=== PATIENT | female | born 1995 | race Caucasian/White ===

== ENCOUNTER 2023-04-27 06:25 | Inpatient (IN) ==
[2023-04-27] MEDS ORDERED: OXYTOCIN 30 UNITS/NSS 30 UNITS/500 ML BAG IV PRN ×3 (07:32→16:47)
[2023-04-27] MEDS ORDERED: LIDOCAINE 1% LOCAL 20 ML VIAL INFIL PRN (07:32)
[2023-04-27] MEDS ORDERED: VANCOMYCIN HCL 1,000 MG in SODIUM CHLORIDE 0.9% 250 ML IV ONE (08:00)
--- NOTE | 2023-04-27 08:24 | History & Physical Report ---
Date of Service April 27, 2023 Assessment & Plan (1) Seizure: (2) Anxiety: (3) Depression affecting in third trimester, antepartum: (4) GBS (group B Streptococcus carrier), +RV culture, currently : (5) Elective induction of labor planned: Plan: 28 yo at 40 wks, IOL at term VSS Afebrile FHR reasuring GBS positive Cervix favorable Plan to admit, labs, OXytocin per protocol, Vancomycin for GBS All questions were answered. (6) History of pre-eclampsia in prior , currently in third trimester: Admission and Anticipated Discharge Date Admission Date: April 27, 2023 History of Present Illness Primary Care Provider: NO PCP Patient is a 28-year-old -0-0-2 at 40 weeks of gestation who was scheduled for IOL at term. No signs of labor. No ctxs/ LOF/VB +FM Her has been complicated by, 1. Obesity during , 2. Depression during , 3. Seizure disorder in , on Keppra 4. Marijuana use in , 5. History of preeclampsia with prior , on aspirin, 6. GBS + Allergies Allergy/AdvReac Type Severity Reaction Status Date / Time amoxicillin Allergy Hives Verified 04/12/22 12:30 varicella virus vaccine live Allergy Hives Verified 04/27/23 07:27 Home Medications Medication Instructions Recorded Confirmed Type aspirin 81 mg capsule 81 mg PO DAILY 04/14/23 04/27/23 History docusate sodium 100 mg capsule 100 mg PO DAILY 04/14/23 04/27/23 History (Colace) levetiracetam 500 mg 1,000 mg PO DAILY 04/14/23 04/27/23 History tablet,extended release 24 hr (Keppra XR) ondansetron HCl 4 mg/5 mL oral 4 mg PO Q6H PRN Nausea 04/14/23 04/27/23 History solution [id number]-[id number]-FA 1 mg 1 tab PO DAILY 04/14/23 04/27/23 History tablet Patient History Medical History (Updated 04/27/23 @ 08:22 by Joycelyn Han MD) Anxiety Seizure Surgical History H/O elbow surgery Social History Smoking Status: Never smoker Tobacco Type: Cigarettes Cigarettes Per Day: pacl/ day; Second Hand Exposure: Yes; Hx Alcohol Use: No Hx Substance Use: Yes Last Used Substance: Just Prior to Arrival Last Used Substance Other:: 04/14/23 Preferred Language: Setswana Communication Ability: Effective Last Repairer Helper Required: No Beliefs That Will Affect Care: None marital status: Single Current Living Situation: Family and Significant Other Other Information That Helps Us Care for You: No Feels Safe at Home: Yes Safety Concerns: Feels Safe At This Time Assistive Devices: None OB History FT 's 10 and 6 years ago 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 History No h/o STD's, no h/o GC/ HSV Remote h/o Chlamydia, treated, PAM negative Review of Systems as per Subjective / HPI Physical Exam Constitutional: WD/WN, vitals as above Gastrointestinal (Abdomen): normal bowel sounds, soft, nontender, no hepatosplenomegaly Genitourinary: normal external appearance OB Exam Abdomen: + vertex Manual OB Exam: + cervical dilation 3 cm, + cervical effacement 30% and + station -2 OB Exam Monitor Tracing: + external uterine monitor used and + category I Results & Data Vital Signs (Past 12 Hours) Vital Signs Temp Pulse Resp BP 04/27/23 06:59 36.9 C 18 04/27/23 06:58 85 106/61 Code Status & VTE Plan VTE Prophylaxis Plan VTE Prophylaxis will be ordered: No
[2023-04-27] MEDS: LACTATED RINGER'S 1,000 ML IV PRN ×2 (08:25→14:43)
[2023-04-27 08:28] LABS: Mean Corpuscular Hemoglobin 29.1 pg (25.0-34.0); Mean Corpuscular Hgb Conc 33.3 g/dL (32.0-36.0); Mean Corpuscular Volume 87.3 fL (80.0-100.0); Mean Platelet Volume 9.4 fL (9.4-12.4); Platelet Count 194 K/uL (130-400); RDW Standard Deviation 44.6 fL (36.4-46.3); Red Blood Count 3.78 M/uL (4.20-5.40)
[2023-04-27 09:05] LABS: Amphetamines+Metham, Urine Neg (Neg); Barbiturates, Urine Neg (Neg); Benzodiazepine, Urine Neg (Neg); Cocaine, Urine Neg (Neg); MDMA (Ecstacy), Urine Neg (Neg); Marijuana, Urine Pos (Neg); Methadone, Urine Neg (Neg); Opiate, Urine Neg (Neg); Phencyclidine, Urine Neg (Neg)
--- NOTE | 2023-04-27 12:17 | Obstetrical Progress Note ---
Date of Service April 27, 2023 Assessment & Plan Admission and Anticipated Discharge Date Admission Date: April 27, 2023 Subjective Patient is reevaluated. She feels ctxs but they are not painful yet No LOF/VB +FM FHR Cteg I [employer] ctxs q 2-3min VE: 4/ 50%/-2, AROM'ed light meconium Continue to monitor closely Results & Data Vital Signs (Past 12 Hours) Vital Signs Temp Pulse Resp BP 04/27/23 11:30 65 119/67 04/27/23 10:32 70 116/69 04/27/23 09:26 71 115/71 04/27/23 08:42 73 116/67 04/27/23 06:59 36.9 C 18 04/27/23 06:58 85 106/61
[2023-04-27] MEDS ORDERED: BUPIVACAINE 0.25% PF 30 ML VIAL ONE (14:03)
[2023-04-27] MEDS ORDERED: ePHEDrine sulfate 50 MG/ML AMP ONE (14:03)
[2023-04-27] MEDS ORDERED: LIDOCAINE 2%/EPINEPHRINE 1:200,000 20 ML PF ONE (14:03)
[2023-04-27] MEDS ORDERED: fentANYL 2 MCG/ML BUPIVacaine 0.125%-NSS 100ML BAG ONE (14:03)
[2023-04-27] MEDS ORDERED: fentaNYL citrate PF 100 MCG/2 ML VIAL ONE (14:03)
[2023-04-27] MEDS ORDERED: SODIUM CHLORIDE 0.9% PF INJ 10 ML VIAL ONE (14:03)
[2023-04-27] MEDS ORDERED: NALBUPHINE HCL 5 MG in SYRINGE 0 ML IV PRN (14:45)
[2023-04-27] MEDS ORDERED: LIDOCAINE 2% MPF LOCAL 5 ML VIAL EPI PRN (14:45)
[2023-04-27] MEDS ORDERED: NALOXONE HCL 1 MG in SODIUM CHLORIDE 0.9% 1,000 ML IV PRN (14:45)
[2023-04-27] MEDS ORDERED: NALOXONE HCL 0.4 MG/1 ML VIAL/CARP IV PRN (14:45)
[2023-04-27] MEDS ORDERED: ROPIVACAINE 0.5% PF 5 MG/ML 20 ML VIAL EPI PRN (14:45)
[2023-04-27] MEDS ORDERED: fentaNYL citrate PF 100 MCG/2 ML VIAL EPI STA (14:45)
[2023-04-27] MEDS ORDERED: BUPIVACAINE 0.25% PF 30 ML VIAL EPI PRN (14:45)
[2023-04-27] MEDS ORDERED: LIDOCAINE 2%/EPINEPHRINE 1:200,000 20 ML PF EPI STA (14:45)
[2023-04-27] MEDS ORDERED: BUPIVACAINE 0.25% PF 30 ML VIAL EPI STA (14:45)
[2023-04-27] MEDS ORDERED: fentaNYL citrate PF 100 MCG/2 ML VIAL EPI PRN (14:45)
[2023-04-27] MEDS ORDERED: SODIUM CHLORIDE 0.9% PF INJ 10 ML VIAL EPI PRN (14:45)
[2023-04-27] MEDS ORDERED: ePHEDrine sulfate 50 MG/ML AMP IV PRN (14:45)
[2023-04-27] MEDS ORDERED: fentANYL 2 MCG/ML BUPIVacaine 0.125%-NSS 100ML BAG EPI PRN (14:45)
[2023-04-27] MEDS ORDERED: diphenhydrAMINE 50 MG/ML VIAL IV PRN (14:45)
[2023-04-27] MEDS ORDERED: SODIUM CHLORIDE 0.9% PF INJ 10 ML VIAL EPI STA (14:45)
--- NOTE | 2023-04-27 14:45 | Anesthesiology Consultation ---
Date of Service April 27, 2023 Assessment & Plan Chart Review Chart Review: Patient NOT seen in Pre Admission Testing and Acceptable Risk for Labor Epidural Consults Requested none ASA ASA2 Proposed Anesthesia Anesthesia Type: Labor Epidural Risk / Benefits Reviewed With: PT / POA / Parent / Guardian, Accepts Plan and Informed Consent Obtained History Height/Weight Height: 5 ft 2 in Weight: 108.862 kg Allergies Allergy/AdvReac Type Severity Reaction Status Date / Time amoxicillin Allergy Hives Verified 04/12/22 12:30 varicella virus vaccine live Allergy Hives Verified 04/27/23 07:27 Medications Home Medications Medication Instructions Recorded Confirmed Last Taken aspirin 81 mg capsule 81 mg PO DAILY 04/14/23 04/27/23 04/26/23 20:00 docusate sodium 100 mg capsule 100 mg PO DAILY 04/14/23 04/27/23 04/26/23 20:00 (Colace) levetiracetam 500 mg 1,000 mg PO DAILY 04/14/23 04/27/23 04/26/23 20:00 tablet,extended release 24 hr (Keppra XR) ondansetron HCl 4 mg/5 mL oral 4 mg PO Q6H PRN Nausea 04/14/23 04/27/23 04/26/23 20:00 solution [id number]-FA 1 mg 1 tab PO DAILY 04/14/23 04/27/23 04/26/23 20:00 tablet Active Medications Generic Name Dose Route Start Last Admin Trade Name Freq PRN Reason Stop Dose Admin Lactated Ringer's 1,000 mls @ 125 mls/hr 04/27/23 07:32 04/27/23 14:43 Lr IV 04/29/23 07:31 125 mls/hr .Q8H PRN Administration L&D Protocol Protocol Oxytocin 30 units in 500 mls @ 14 mls/hr 04/27/23 08:17 04/27/23 13:30 Pitocin 30 Units/Nss IV 04/29/23 08:16 0.84 units/hr .Q24H PRN 14 mls/hr Labor Induction/Augmentation Titration Protocol 0.84 UNITS/HR Past Medical History Medical History (Updated 04/27/23 @ 08:22 by Joycelyn Han MD) Anxiety Seizure Exercise / Class Metabolic Activity II 4-5 Yardwork/Stairs/Walk up hill Past Surgical History Surgical History H/O elbow surgery Past Anesthesia History No Hx of Anesthesia Complications and No Family Hx of Anesthesia Complications History of PONV No Hx of PONV and No Hx of Motion Sickness Social History Smoking Status: Never smoker Smoking cigarettes per day: pacl/ day Hx Alcohol Use: No Hx Substance Use: Yes substance use type: marijuana Last Used Substance: Just Prior to Arrival Last Used Substance Other:: 04/14/23 Physical Exam Vital Signs Last Vital Signs Temp 36.9 C 04/27/23 13:30 Pulse 65 04/27/23 14:43 Resp 18 04/27/23 12:16 BP 128/76 04/27/23 14:43 Pulse Ox 100 04/27/23 14:43 ENMT Mouth: no dentition abnormality Thyromental Distance: > or= 3.5 Finger Breadths Mallampati Class: II Neck normal visual inspection Respiratory normal respiratory effort Auscultation: lungs clear to auscultation bilaterally Cardiovascular Rate/Rhythm: regular rate and regular rhythm Psychiatric Orientation: alert Testing Laboratory Results 04/27/23 07:58 Blood Type A Positive 04/27/23 07:58 Antibody Screen NEGATIVE 04/27/23 07:58
[2023-04-27] MEDS ORDERED: bisacodyL 10 MG SUPP PR PRN (16:47)
[2023-04-27] MEDS ORDERED: BENZOCAINE 20% SPRY 85 APPLN/85 GM CAN EXT PRN (16:47)
[2023-04-27] MEDS ORDERED: DIPHTHERIA/TETANUS/PERTUSSIS Vaccine (Tdap, Age 7+yrs) 0.5mL SYR/VL IM ONE (16:47)
[2023-04-27] MEDS ORDERED: ACETAMINOPHEN 325 MG TAB PO PRN (16:47)
[2023-04-27] MEDS ORDERED: MEASLES, MUMPS & RUBELLA VIRUS VACCINE (MMR) VIAL SQ ONE (16:47)
[2023-04-27] MEDS ORDERED: HYDROCORTISONE ACETATE 25 MG SUPP PR PRN (16:47)
--- NOTE | 2023-04-27 16:50 | Delivery Summary ---
Vaginal Delivery Summary Date of Service April 27, 2023 Vaginal Delivery Summary Patient was found to be fully dilated and desires to push. She pushed with 3 contractions and delivered the head and then shoulders with minimal traction without difficulty. The baby was handed off to the mother. The cord was clampedx2 and cut at 1 minute. The vagina and perineum were checked and found to have superficial mucosal abrasion at supraclitoral area. It was repiarred iwht 3-0 Vicryl on a SH needle. The placenta was delivered spontaneously as intact and complete. The uterus was explored and found to be empty. EBL was 100 ml. The fundus was firm The baby was a viable female , Apgars 8/9, the weight is pending The mother and the baby tolerated the procedure well. No complications happened and I was present during whole procedure.
--- NOTE | 2023-04-27 18:09 | Anesthesia Procedure Note ---
Date of Service April 27, 2023 Anesthesia Post Epidural Note Vital Signs Vital Signs: Temp Pulse Resp BP Pulse Ox 36.4 C L 68 20 113/69 100 04/27/23 15:00 04/27/23 17:57 04/27/23 17:27 04/27/23 17:57 04/27/23 16:38 Pain Intensity Bilateral Abdomen: Pain Intensity: 3 Notes Mental Status: alert / awake / arousable Nausea / Vomiting: adequately controlled Pain: adequately controlled Airway Patency, RR, SpO2: stable & adequate BP & HR: stable & adequate Hydration State: stable & adequate Neuraxial Anesthesia: was administered and sensory block is resolving Anesthetic Complications: no major complications apparent and Pt Satisfied with anesthetic care Epidural: Removed without complications and With tip intact
[2023-04-27] MEDS: IBUPROFEN 600 MG TAB PO PRN ×2 (18:34→23:35)
[2023-04-27] MEDS ORDERED: VANCOMYCIN HCL 1,000 MG in SODIUM CHLORIDE 0.9% 250 ML IV PRN (18:35)
[2023-04-27] MEDS: LEVETIRACETAM 500 MG PO SCH (20:43)
[2023-04-27] MEDS: DOCUSATE SODIUM 100 MG CAP PO SCH (20:43)
[2023-04-28] MEDS: IBUPROFEN 600 MG TAB PO PRN ×3 (04:26→19:39)
[2023-04-28 06:18] LABS: Hematocrit (blood only) 29.6 % (37.0-47.0); Hemoglobin 9.6 g/dl (12.0-16.0); Mean Corpuscular Hemoglobin 28.6 pg (25.0-34.0); Mean Corpuscular Hgb Conc 32.4 g/dL (32.0-36.0); Mean Corpuscular Volume 88.1 fL (80.0-100.0); Mean Platelet Volume 9.4 fL (9.4-12.4); Platelet Count 166 K/uL (130-400); RDW Coefficient of Variation 14.1 % (11.5-14.5); RDW Standard Deviation 44.8 fL (36.4-46.3); Red Blood Count 3.36 M/uL (4.20-5.40); White Blood Count 7.16 K/ul (4.8-10.8)
[2023-04-28] MEDS: DOCUSATE SODIUM 100 MG CAP PO SCH ×2 (08:28→19:40)
[2023-04-28] MEDS: PRENATAL VITAMIN 1 TAB PO SCH (08:28)
[2023-04-28] MEDS: FERROUS SULFATE 325 MG TAB PO SCH (08:28)
--- NOTE | 2023-04-28 10:22 | Obstetrical Progress Note ---
Date of Service April 28, 2023 Subjective Ambulation: ambulating normally Voiding: no voiding problems Passing Gas:: Yes Diet Tolerance:: regular diet Lochia:: Small Feeding Type:: breast feeding Current Pain Level(1-10): 0 Physical Exam Constitutional WD/WN, vitals as above Musculoskeletal Extremities: extremities normal to inspection Skin no rashes, warm and dry Neurologic patellar DTR's 2+ bilat, sensation intact Psychiatric A+Ox3, euthymic affect Results & Data Vital Signs (Past 12 Hours) Vital Signs Temp Pulse Resp BP O2 Del Method 04/28/23 08:05 37.2 C 76 18 119/81 Room Air 04/28/23 04:25 36.6 C 67 16 99/63 L Room Air 04/27/23 23:25 36.5 C 68 18 106/71 Room Air Laboratory Results Laboratory Results - last 72 hr 04/27/23 04/27/23 04/27/23 07:58 Unknown Unknown WBC 7.30 RBC 3.78 L Hgb 11.0 L Hct 33.0 L MCV 87.3 MCH 29.1 MCHC 33.3 RDW Std Deviation 44.6 RDW Coeff of Carolyn 14.0 Plt Count 194 MPV 9.4 Ur Butalbital Confirm Cancelled Urine Opiates Screen Cancelled Neg U Codeine Confrm GC/MS Cancelled Ur Morphine (GC/MS) Cancelled Ur Hydrocodone (GC/MS) Cancelled U Norhydrocodone Conf Cancelled Ur Oxycodone Screen Cancelled U Noroxycodone Confirm Cancelled Ur Oxycodone GC/MS Cancelled U Oxymorphone GC/MS Cancelled EDDP Confirm Cancelled Ur Methadone, Qual Cancelled Ur Methadone Ur Hydromorphone (GC/MS) Urine Barbiturates Ur Phencyclidine Scrn Ur Phencyclidine (PCP) Urine PCP Confirm Ur Amphetamines Screen U Amphetamines Confirm U Amphetamin/Meth Scrn Methamphetamine GC/MS MDMA (Ecstasy) Screen Ur Amobarbital GC/MS U Pentobarbital GC/MS U Phenobarbital GC/MS U Secobarbital GC/MS U x-BY-Wzrjmutps GC/MS U Benzodiazepines Scrn U 7-Aminoclonazepam Screen Ur Nordiazepam GC/MS U OH-ethylfluraz GC/MS U Lorazepam Cnf GC/MS U Oxazepam Confm GC/MS Ur Temazepam Cnf GC/MS U a-Hydroxytriaz GC/MS U q-WO-Igwtucnco Urine Cocaine Ur Cocaine Metabolite U Cocaine Metab Confirm Tetrahydrocannabinol U Marijuana (THC) Screen Drug Screen Comment Reference Lab Blood Type A Positive Antibody Screen NEGATIVE 04/27/23 04/27/23 04/27/23 Unknown Unknown Unknown WBC RBC Hgb Hct MCV MCH MCHC RDW Std Deviation RDW Coeff of Carolyn Plt Count MPV Ur Butalbital Confirm Urine Opiates Screen U Codeine Confrm GC/MS Ur Morphine (GC/MS) Ur Hydrocodone (GC/MS) U Norhydrocodone Conf Ur Oxycodone Screen U Noroxycodone Confirm Ur Oxycodone GC/MS U Oxymorphone GC/MS EDDP Confirm Ur Methadone, Qual Neg Ur Methadone Cancelled Ur Hydromorphone (GC/MS) Cancelled Urine Barbiturates Cancelled Neg Ur Phencyclidine Scrn Cancelled Ur Phencyclidine (PCP) Neg Urine PCP Confirm Cancelled Ur Amphetamines Screen Cancelled U Amphetamines Confirm Cancelled U Amphetamin/Meth Scrn Neg Methamphetamine GC/MS Cancelled MDMA (Ecstasy) Screen Neg Ur Amobarbital GC/MS Cancelled U Pentobarbital GC/MS Cancelled U Phenobarbital GC/MS Cancelled U Secobarbital GC/MS Cancelled U n-EF-Xrmhvflww GC/MS Cancelled U Benzodiazepines Scrn Cancelled Neg U 7-Aminoclonazepam Screen Cancelled Ur Nordiazepam GC/MS Cancelled U OH-ethylfluraz GC/MS Cancelled U Lorazepam Cnf GC/MS Cancelled U Oxazepam Confm GC/MS Cancelled Ur Temazepam Cnf GC/MS Cancelled U a-Hydroxytriaz GC/MS Cancelled U j-WN-Rsosdwqth Cancelled Urine Cocaine Cancelled Ur Cocaine Metabolite Neg U Cocaine Metab Confirm Cancelled Tetrahydrocannabinol Cancelled U Marijuana (THC) Screen Cancelled Drug Screen Comment Reference Lab Blood Type Antibody Screen 04/27/23 04/28/23 Unknown 05:50 WBC 7.16 RBC 3.36 L Hgb 9.6 L Hct 29.6 L MCV 88.1 MCH 28.6 MCHC 32.4 RDW Std Deviation 44.8 RDW Coeff of Carolyn 14.1 Plt Count 166 MPV 9.4 Ur Butalbital Confirm Urine Opiates Screen U Codeine Confrm GC/MS Ur Morphine (GC/MS) Ur Hydrocodone (GC/MS) U Norhydrocodone Conf Ur Oxycodone Screen U Noroxycodone Confirm Ur Oxycodone GC/MS U Oxymorphone GC/MS EDDP Confirm Ur Methadone, Qual Ur Methadone Ur Hydromorphone (GC/MS) Urine Barbiturates Ur Phencyclidine Scrn Ur Phencyclidine (PCP) Urine PCP Confirm Ur Amphetamines Screen U Amphetamines Confirm U Amphetamin/Meth Scrn Methamphetamine GC/MS MDMA (Ecstasy) Screen Ur Amobarbital GC/MS U Pentobarbital GC/MS U Phenobarbital GC/MS U Secobarbital GC/MS U q-VZ-Yydlsbrzu GC/MS U Benzodiazepines Scrn U 7-Aminoclonazepam Screen Ur Nordiazepam GC/MS U OH-ethylfluraz GC/MS U Lorazepam Cnf GC/MS U Oxazepam Confm GC/MS Ur Temazepam Cnf GC/MS U a-Hydroxytriaz GC/MS U a-IN-Fgpiecoqb Urine Cocaine Ur Cocaine Metabolite U Cocaine Metab Confirm Tetrahydrocannabinol U Marijuana (THC) Screen Pos H Drug Screen Comment Cancelled Reference Lab Cancelled Blood Type Antibody Screen
[2023-04-28] MEDS: LEVETIRACETAM 500 MG PO SCH (19:40)
[2023-04-28] MEDS ORDERED: bisacodyL 5 MG TABEC PO SCH (20:00)
[2023-04-28 23:38] LABS: Marijuana Quant, GCMS Urine 2428 ng/mL (<5)
[2023-04-29 06:51] LABS: Hematocrit (blood only) 30.6 % (37.0-47.0); Hemoglobin 9.8 g/dl (12.0-16.0)
--- NOTE | 2023-04-29 09:16 | Obstetrical Progress Note ---
Date of Service April 29, 2023 Assessment & Plan Admission and Anticipated Discharge Date Admission Date: April 27, 2023 Subjective Patient is seen and examined. She feels well, no complaints. Ambulating without dizziness Voiding without difficulty Tolerating regular diet with out N&V Bleeding is minimal No fever/ chills/ CP/ SOB/ N&V/ Leg pain Bottle feeding without problems Vital Signs Temp Pulse Resp BP Pulse Ox O2 Del Method 04/29/23 00:00 36.6 C 71 18 107/73 98 Room Air Lab Results 04/27/23 04/27/23 04/27/23 Range/Units 07:58 Unknown Unknown WBC 7.30 (4.8-10.8) K/ul RBC 3.78 L (4.20-5.40) M/uL Hgb 11.0 L (12.0-16.0) g/dl Hct 33.0 L (37.0-47.0) % MCV 87.3 (80.0-100.0) fL MCH 29.1 (25.0-34.0) pg MCHC 33.3 (32.0-36.0) g/dL RDW Std Deviation 44.6 (36.4-46.3) fL RDW Coeff of Carolyn 14.0 (11.5-14.5) % Plt Count 194 (130-400) K/uL MPV 9.4 (9.4-12.4) fL Ur Butalbital Confirm Cancelled Urine Opiates Screen Cancelled Neg U Codeine Confrm GC/MS Cancelled Ur Morphine (GC/MS) Cancelled Ur Hydrocodone (GC/MS) Cancelled U Norhydrocodone Conf Cancelled Ur Oxycodone Screen Cancelled U Noroxycodone Confirm Cancelled Ur Oxycodone GC/MS Cancelled U Oxymorphone GC/MS Cancelled EDDP Confirm Cancelled Ur Methadone, Qual Cancelled Ur Methadone Ur Hydromorphone (GC/MS) Urine Barbiturates Ur Phencyclidine Scrn Ur Phencyclidine (PCP) (Neg) Urine PCP Confirm Ur Amphetamines Screen U Amphetamines Confirm U Amphetamin/Meth Scrn (Neg) Methamphetamine GC/MS MDMA (Ecstasy) Screen (Neg) Ur Amobarbital GC/MS U Pentobarbital GC/MS U Phenobarbital GC/MS U Secobarbital GC/MS U r-CV-Bflfysceh GC/MS U Benzodiazepines Scrn U 7-Aminoclonazepam Screen Ur Nordiazepam GC/MS U OH-ethylfluraz GC/MS U Lorazepam Cnf GC/MS U Oxazepam Confm GC/MS Ur Temazepam Cnf GC/MS U a-Hydroxytriaz GC/MS U u-TI-Isothrlew Urine Cocaine Ur Cocaine Metabolite (Neg) U Cocaine Metab Confirm Tetrahydrocannabinol U Marijuana (THC) Screen U Marijuana THC Carboxy (<5) ng/mL Drug Screen Comment Reference Lab Blood Type A Positive Antibody Screen NEGATIVE 04/27/23 04/27/23 04/27/23 Range/Units Unknown Unknown Unknown WBC (4.8-10.8) K/ul RBC (4.20-5.40) M/uL Hgb (12.0-16.0) g/dl Hct (37.0-47.0) % MCV (80.0-100.0) fL MCH (25.0-34.0) pg MCHC (32.0-36.0) g/dL RDW Std Deviation (36.4-46.3) fL RDW Coeff of Carolyn (11.5-14.5) % Plt Count (130-400) K/uL MPV (9.4-12.4) fL Ur Butalbital Confirm Urine Opiates Screen U Codeine Confrm GC/MS Ur Morphine (GC/MS) Ur Hydrocodone (GC/MS) U Norhydrocodone Conf Ur Oxycodone Screen U Noroxycodone Confirm Ur Oxycodone GC/MS U Oxymorphone GC/MS EDDP Confirm Ur Methadone, Qual Neg Ur Methadone Cancelled Ur Hydromorphone (GC/MS) Cancelled Urine Barbiturates Cancelled Neg Ur Phencyclidine Scrn Cancelled Ur Phencyclidine (PCP) Neg (Neg) Urine PCP Confirm Cancelled Ur Amphetamines Screen Cancelled U Amphetamines Confirm Cancelled U Amphetamin/Meth Scrn Neg (Neg) Methamphetamine GC/MS Cancelled MDMA (Ecstasy) Screen Neg (Neg) Ur Amobarbital GC/MS Cancelled U Pentobarbital GC/MS Cancelled U Phenobarbital GC/MS Cancelled U Secobarbital GC/MS Cancelled U x-XP-Satlgopcx GC/MS Cancelled U Benzodiazepines Scrn Cancelled Neg U 7-Aminoclonazepam Screen Cancelled Ur Nordiazepam GC/MS Cancelled U OH-ethylfluraz GC/MS Cancelled U Lorazepam Cnf GC/MS Cancelled U Oxazepam Confm GC/MS Cancelled Ur Temazepam Cnf GC/MS Cancelled U a-Hydroxytriaz GC/MS Cancelled U p-PE-Xpnbsrbwt Cancelled Urine Cocaine Cancelled Ur Cocaine Metabolite Neg (Neg) U Cocaine Metab Confirm Cancelled Tetrahydrocannabinol Cancelled U Marijuana (THC) Screen Cancelled U Marijuana THC Carboxy (<5) ng/mL Drug Screen Comment Reference Lab Blood Type Antibody Screen 04/27/23 04/27/23 04/28/23 Range/Units Unknown Unknown 05:50 WBC 7.16 (4.8-10.8) K/ul RBC 3.36 L (4.20-5.40) M/uL Hgb 9.6 L (12.0-16.0) g/dl Hct 29.6 L (37.0-47.0) % MCV 88.1 (80.0-100.0) fL MCH 28.6 (25.0-34.0) pg MCHC 32.4 (32.0-36.0) g/dL RDW Std Deviation 44.8 (36.4-46.3) fL RDW Coeff of Carolyn 14.1 (11.5-14.5) % Plt Count 166 (130-400) K/uL MPV 9.4 (9.4-12.4) fL Ur Butalbital Confirm Urine Opiates Screen U Codeine Confrm GC/MS Ur Morphine (GC/MS) Ur Hydrocodone (GC/MS) U Norhydrocodone Conf Ur Oxycodone Screen U Noroxycodone Confirm Ur Oxycodone GC/MS U Oxymorphone GC/MS EDDP Confirm Ur Methadone, Qual Ur Methadone Ur Hydromorphone (GC/MS) Urine Barbiturates Ur Phencyclidine Scrn Ur Phencyclidine (PCP) (Neg) Urine PCP Confirm Ur Amphetamines Screen U Amphetamines Confirm U Amphetamin/Meth Scrn (Neg) Methamphetamine GC/MS MDMA (Ecstasy) Screen (Neg) Ur Amobarbital GC/MS U Pentobarbital GC/MS U Phenobarbital GC/MS U Secobarbital GC/MS U t-LE-Zqcjpuzps GC/MS U Benzodiazepines Scrn U 7-Aminoclonazepam Screen Ur Nordiazepam GC/MS U OH-ethylfluraz GC/MS U Lorazepam Cnf GC/MS U Oxazepam Confm GC/MS Ur Temazepam Cnf GC/MS U a-Hydroxytriaz GC/MS U y-WE-Ghnjqczhy Urine Cocaine Ur Cocaine Metabolite (Neg) U Cocaine Metab Confirm Tetrahydrocannabinol U Marijuana (THC) Screen Pos H U Marijuana THC Carboxy 2428 H (<5) ng/mL Drug Screen Comment Cancelled SEE NOTE Reference Lab Cancelled Blood Type Antibody Screen 04/29/23 Range/Units 06:17 WBC (4.8-10.8) K/ul RBC (4.20-5.40) M/uL Hgb 9.8 L (12.0-16.0) g/dl Hct 30.6 L (37.0-47.0) % MCV (80.0-100.0) fL MCH (25.0-34.0) pg MCHC (32.0-36.0) g/dL RDW Std Deviation (36.4-46.3) fL RDW Coeff of Carolyn (11.5-14.5) % Plt Count (130-400) K/uL MPV (9.4-12.4) fL Ur Butalbital Confirm Urine Opiates Screen U Codeine Confrm GC/MS Ur Morphine (GC/MS) Ur Hydrocodone (GC/MS) U Norhydrocodone Conf Ur Oxycodone Screen U Noroxycodone Confirm Ur Oxycodone GC/MS U Oxymorphone GC/MS EDDP Confirm Ur Methadone, Qual Ur Methadone Ur Hydromorphone (GC/MS) Urine Barbiturates Ur Phencyclidine Scrn Ur Phencyclidine (PCP) (Neg) Urine PCP Confirm Ur Amphetamines Screen U Amphetamines Confirm U Amphetamin/Meth Scrn (Neg) Methamphetamine GC/MS MDMA (Ecstasy) Screen (Neg) Ur Amobarbital GC/MS U Pentobarbital GC/MS U Phenobarbital GC/MS U Secobarbital GC/MS U u-TV-Ylqhysvfr GC/MS U Benzodiazepines Scrn U 7-Aminoclonazepam Screen Ur Nordiazepam GC/MS U OH-ethylfluraz GC/MS U Lorazepam Cnf GC/MS U Oxazepam Confm GC/MS Ur Temazepam Cnf GC/MS U a-Hydroxytriaz GC/MS U x-VO-Zhigzlcom Urine Cocaine Ur Cocaine Metabolite (Neg) U Cocaine Metab Confirm Tetrahydrocannabinol U Marijuana (THC) Screen U Marijuana THC Carboxy (<5) ng/mL Drug Screen Comment Reference Lab Blood Type Antibody Screen PE: General: Alert, orientedx3, NAD Abd: soft, NT, fundus firm, below Umbilicus Perineum intact, Lochia rubra minimal Ext; NT, no edema AP: 28 yo s/p , ppd# 2 VSS Afebrile doing well Continue routine care All questions were answered D/C home Results & Data Vital Signs (Past 12 Hours) Vital Signs Temp Pulse Resp BP Pulse Ox O2 Del Method 04/29/23 00:00 36.6 C 71 18 107/73 98 Room Air
[2023-04-29] MEDS: FERROUS SULFATE 325 MG TAB PO SCH (10:18)
[2023-04-29] MEDS: PRENATAL VITAMIN 1 TAB PO SCH (10:18)
[2023-04-29] MEDS: IBUPROFEN 600 MG TAB PO PRN (10:19)
[2023-04-29] MEDS: DOCUSATE SODIUM 100 MG CAP PO SCH (11:29)
== END 2023-04-29 14:57 | disposition home or self-care (01) | DRG 807 ==
LOC: 4S1 06:25 → 4E2 19:47